=== PATIENT | male | born 1940 | race Caucasian/White ===

== ENCOUNTER 2020-11-17 11:25 | Emergency (ER) | payer MEDICARE, SELFPAY ==
--- NOTE | ~2020-11-17 | CT_ITS ---
EXAMINATION: CT brain wo con EXAM DATE: 11/17/2020 11:51 INDICATION: Slurred speech, left leg pain and heaviness. TECHNIQUE: Spiral CT of the head was performed without contrast. Axial, coronal and sagittal images were reviewed. The dose-length product (DLP) for this examination was 681.00 mGy-cm. The exposure w as tailored according to patient size, and iterative reconstruction (ASIR) was used as additional dos e reduction technique. There is no prior study for comparison. FINDINGS: There is no acute intraparenchymal hemorrhage. No evidence of intraparenchymal brain mass lesion. No evidence of acute infarction. Please note that initial head CT has limited sensitivity f or small or acute infarctions. There is mild periventricular and subcortical hypodensity, nonspecific but probably related to small vessel ischemic disease. There is mild prominence of the sulci and v entricles related to cerebral atrophy. There is intracranial carotid arteriosclerosis. There are n o extra-axial collections. There is no mass effect or midline shift. The orbits are unremarkable. Soft tissue is unremarkable. The visualized sinuses and mastoid air cells are well aerated. IMPRESSION: 1. No acute intracranial findings. 2. Chronic age related findings. Reviewed, dictated and finalized at location B.
--- NOTE | ~2020-11-17 | CT_ITS ---
EXAMINATION: CTA brain carotid EXAM DATE: 11/17/2020 13:26 INDICATION: Slurred speech, right facial droop. Left leg pain. History hypertension. TECHNIQUE: Noncontrast head CT. Spiral CTA of the carotid arteries was performed with intravenous i njection 100 cc of Omnipaque 350. Axial, coronal, sagittal reformatted images reviewed. Additional r eformatted images created on dedicated 3-D workstation. NASCET comparable standard used to assess th e degree of arterial stenosis. Spiral CT angiogram cerebral arteries performed with the same intrave nous injection of contrast. Source images of the brain CTA transferred to dedicated workstation for 3 -D rotational image creation. Coronal, sagittal maximum intensity pixel images also reviewed. The d ose-length product (DLP) for this examination was 593.65 mGy-cm. The exposure was tailored accordin g to patient size, and iterative reconstruction (ASIR) was used as additional dose reduction techniqu e. Correlation is made to noncontrast head CT earlier same date. FINDINGS: There is mild to moderate bilateral carotid bulb plaque which is accommodated by the respec tive carotid bulb natural dilation, 0% carotid stenosis bilaterally. The vertebral arteries are codom inant. There is mild bilateral carotid siphon arterial sclerosis without stenosis. There is no carot id or vertebral basilar arterial dissection or fibromuscular dysplasia. There are no cerebral artery aneurysms. There is symmetric cerebral artery arborization. The sagittal, transverse and sigmoid sinu ses enhance normally, no venous sinus thrombosis. Internal cerebral veins also enhance normally. IMPRESSION: 1. No acute carotid or intracranial findings. 2. Carotid plaque without stenosis. Reviewed, dictated and finalized at location B.
--- NOTE | 2020-11-17 11:32 | ED.NEUROSD ---
HPI - Neuro Symptoms/Deficit General Chief Complaint: Neuro Symptoms/Deficit Stated Complaint: Back and leg pain Source: patient History of Present Illness HPI Narrative: patient was sent over from his primary care physician's office. He was being seen there for some back pain. His doctor noted that he had some slurred speech his daughter stated that been going on since Tuesday night 3 days ago. He is sent over for further evaluation of possible stroke. Onset (ago): day(s) (3) Timing confirmed by: family member Location: speech History of same: No Severity: mild Quality: weak Relieving factors: none Exacerbating factors: none Context: gradual onset Treatments Prior to Arrival: none Related Data Home Medications Medication Instructions Recorded Confirmed alprazolam 0.25 mg PO HS 11/17/20 11/17/20 amlodipine 5 mg PO DAILY 11/17/20 11/17/20 fluticasone propionate 2 inh INHALATION BID 11/17/20 11/17/20 levothyroxine 100 mcg PO DAILY 11/17/20 11/17/20 pravastatin 40 mg PO DAILY 11/17/20 11/17/20 tamsulosin 0.8 mg PO DAILY 11/17/20 11/17/20 Allergies Allergy/AdvReac Type Severity Reaction Status Date / Time No Known Allergies Allergy Unverified 04/27/18 14:10 [facility] Past Medical History Medical History (Updated 11/17/20 @ 14:05 by Lalo Monsivais MD) Anxiety disorder BPH (benign prostatic hyperplasia) Hyperlipidemia Hypertension Hypothyroidism Surgical History Surgical History (Updated 11/17/20 @ 11:38 by Lalo Monsivais MD) H/O parathyroidectomy Exam Const: General: healthy appearing and no acute distress Nutritional Appearance: well nourished and thin Orientation/consciousness: patient oriented x3 HENMT: Head: normal to inspection Ears: external ears normal Face and sinus: normal facial exam Mouth: Yes moist mucous membranes Eyes: Conjunctivae: conjunctivae normal Pupils: Equal, round and reactive pupils present EOM: EOMs intact bilaterally Neck: Neck: normal visual inspection Resp: Effort & Inspection: normal respiratory effort Auscultation: clear to auscultation bilaterally Cardio: Rate: regular rate Rhythm: regular rhythm GI: GI Palp: Yes Soft to palpation and No Tenderness to palpation present (GI) Auscultation: normal bowel sounds Back/Spine/Pelvis: Cervical Spine: cervical ROM normal Thoracic/Lumbar Spine: thoraco-lumbar ROM normal, paraspinal muscle tenderness on the left and No lumbar spinal tenderness Skin: General skin exam: normal color Rashes: no rashes Neuro: General: patient oriented x3 and moves all extremities Cranial nerves: Yes Facial sensation intact/muscles of mastication intact, Yes Equal, round and reactive pupils present, Yes Bilaterally intact EOM present, Yes Midline tongue present and Yes Other cranial nerve findings present ( Slight weakness on the right side face) Speech: Abnormal speech present slurred (Mild) Gait exam (Neuro): Normal gait present Motor exam (neuro): 5/5 motor strength present throughout, Pronator motor function not present, No asterixis and Motor abnormalities not present Sensory Exam: normal sensation Coordination: [id number] test normal and [id number] test normal Extrem: General: normal to inspection, no clubbing, cyanosis or edema and no pedal edema Psych: Appearance: grossly normal and well kempt Mental Status: mental status grossly normal Affect: normal affect Attitude: cooperative Thought content: Yes Normal thought content present Course Vital Signs Vital signs: Vital Signs Temperature 36.8 C 11/17/20 11:34 Pulse Rate 77 11/17/20 11:34 Respiratory Rate 16 11/17/20 11:34 Blood Pressure 146/91 H 11/17/20 11:34 Pulse Oximetry 96 11/17/20 11:34 Temperature 36.8 C 11/17/20 11:34 Pulse Rate 78 11/17/20 14:10 Respiratory Rate 14 11/17/20 14:10 Blood Pressure 136/88 11/17/20 13:05 Pulse Oximetry 98 11/17/20 14:10 MDM - Neuro Symptoms/Deficit MDM Narrative Medical decision mason
[2020-11-17 11:34] VITALS: BP 146/91; PULSE 77; RESP 16; TEMP 36.8; O2SAT 96
--- NOTE | 2020-11-17 11:36 | ECG_ITS ---
Measurements Intervals [place] Rate: 72 P: 32 MO: 159 QRS: -23 QRSD: 108 T: 30 QT: 377 QTc: 415 Interpretive Statements SINUS RHYTHM WITH SINUS ARRHYTHMIA INCOMPLETE RIGHT BUNDLE BRANCH BLOCK BASELINE ARTIFACT- II, III, AVF BORDERLINE ECG Electronically Signed On 11-17-2020 12:31:39 CDT by Perry Centeno D.O.
[2020-11-17 11:45] LABS: Glucose Point of Care 102 (65-105)
[2020-11-17 12:03] LABS: Basophils Absolute Auto 0.08 K/mm3 (0.00-0.10); Basophils Percent Auto 0.7 % (0.0-1.0); Eosinophils Absolute Auto 0.34 K/mm3 (0.02-0.50); Hematocrit 45.1 % (37.0-46.0); Hemoglobin 15.8 g/dL (12.4-15.3); Immature Granulocyte Absolute 0.03 K/mm3 (0.00-0.00); Immature Granulocyte Percent A 0.3 % (0.0-0.0); Lymphocytes Absolute Auto 2.01 K/mm3 (1.10-4.50); Lymphocytes Percent Auto 17.8 % (18.0-42.0); Mean Corpuscular Hemoglobin 31.8 pg (27.0-31.0); Mean Corpuscular Volume 90.7 fL (78.0-102.0); Mean Platelet Volume 9.7 fl (8.7-11.0); Monocytes Absolute Auto 0.73 K/mm3 (0.10-0.90); Monocytes Percent Auto 6.5 % (2.0-11.0); Neutrophils Absolute Auto 8.1 K/mm3 (1.7-7.2); Neutrophils Percent Auto 71.7 % (50.0-70.0); Platelet Count Result 240 K/mm3 (150-420); Red Blood Count 4.97 M/mm3 (4.70-6.10); Red Cell Distribution Width 11.9 % (11.6-14.4); White Blood Count 11.3 K/mm3 (4.8-10.8)
[2020-11-17 12:20] LABS: Partial Thromboplastin Time 31.2 SEC (23.90-30.70); Prothrombin Time 10.9 Seconds (9.50-12.10)
[2020-11-17 12:21] LABS: Alanine Aminotransferase 28 U/L (16-63); Albumin Level 3.8 g/dL (3.4-5.0); Alkaline Phosphatase 57 U/L (46-116); Anion Gap 8 mmol/L (8-16); Aspartate Amino Transferase 16 U/L (15-37); Bilirubin,Total 0.8 mg/dL (0.00-1.00); Blood Urea Nitrogen 21 mg/dL (7-18); Calcium 8.9 mg/dL (8.5-10.1); Carbon Dioxide 29 mmol/L (21-32); Chloride 100 mmol/L (98-108); Estimated CRCL calculation 45 ml/min; Estimated Glomerular Filt Rate 58; Glucose 105 mg/dL (70-99); Osmolality Calculated 287 mOsm/kg (285-295); Potassium 3.8 mmol/L (3.5-5.1); Sodium 137 mmol/L (136-145); Total Protein 7.7 g/dL (6.4-8.2)
--- NOTE | 2020-11-17 12:43 | PC.NURSE ---
no change in pt status
[2020-11-17 13:05] VITALS: BP 136/88; PULSE 77; RESP 18; O2SAT 97
[2020-11-17] MEDS: KETOROLAC 30 MG/ML VIAL (*BKC) IV PUSH (13:50)
[2020-11-17 14:10] VITALS: PULSE 78; RESP 14; O2SAT 98
== END 2020-11-17 14:11 | disposition home or self-care (01) ==
PROVIDERS: Emergency Provider Emergency Medicine; PCP Internal Medicine
DX: G45.9 Transient cerebral ischemic attack, unspecified (principal); M54.5 Low back pain; E78.5 Hyperlipidemia, unspecified; I10 Essential (primary) hypertension; E03.9 Hypothyroidism, unspecified
CPT/HCPCS: 36415; 70450; 70496; 70498; 80053; 82948; 85025; 85610; 85730; 93005; 96374; 99283; 99284; J1885; Q9967

== ENCOUNTER 2020-11-18 10:55 | Outpatient (CLI) | payer MEDICARE, SELFPAY ==
--- NOTE | ~2020-11-18 | XR_ITS ---
EXAMINATION: XR lumbar spine 2-3V DATE: 11/18/2020 11:18 INDICATION: Low back pain TECHNIQUE: Anteroposterior and lateral views of the lumbar spine, and cone-down lateral view of the l umbosacral junction were obtained. COMPARISON: None. FINDINGS: There are 2 mm of anterolisthesis of L4 on L5 and 4 mm of retrolisthesis of L5 on S1. No fr acture is identified. Vertebral body heights are normal. Small degenerative osteophytes project from the anterior endplates of multiple vertebral bodies. Calcified atherosclerosis is noted. There is mod erate facet osteoarthritis in the middle lower lumbar spine. IMPRESSION: 1. Mild lumbar spondylosis without acute findings. Reviewed, dictated and finalized at location A.
== END 2020-11-18 10:56 | disposition home or self-care (01) ==
PROVIDERS: PCP Internal Medicine; Visit Provider Internal Medicine
DX: M54.5 Low back pain (principal)
CPT/HCPCS: 72100

== ENCOUNTER 2020-11-19 17:48 | Outpatient (CLI) | payer MEDICARE, SELFPAY ==
--- NOTE | ~2020-11-19 | MR_ITS ---
EXAMINATION: MR brain/brain stem wo/w con DATE: 11/19/2020 20:12 INDICATION: Transient ischemic attack. Slurred speech. Right facial weakness. TECHNIQUE: Magnetic resonance imaging (MRI) of the brain and brainstem was performed without and with 10 mL MultiHance intravenous contrast. Sequences included sagittal and axial T1-weighted FSE, axial diffusion-weighted FS EPI, axial T2*-weighted GRE, axial T2-weighted FLAIR Propeller, and axial T2-we ighted Propeller. Postcontrast sequences included axial and coronal T1-weighted FSE. Apparent diffusi on coefficient (ADC) maps were created. COMPARISON: Head CT 11/17/2020 FINDINGS: There are scattered areas of nonspecific increased T2-weighted signal intensity in the cere bral white matter and june. There is no intracranial hemorrhage, acute infarction, or abnormal intrac ranial mass lesion. The ventricles are normal in size. There are likely changes of ocular lens replac ement surgeries. There is anteroposterior elongation of the ocular globes. There is mild mucosal thic kening in left maxillary sinus. The mastoid air cells are normal. IMPRESSION: 1. Mild nonspecific cerebral white matter disease and pontine disease, which likely represents chroni c small vessel ischemic disease. Reviewed, dictated and finalized at location A. IMPRESSION: 1. Mild nonspecific cerebral white matter disease and pontine disease, which kermit jones represents chronic small vessel ischemic disease.
== END 2020-11-19 17:49 | disposition home or self-care (01) ==
LOC: CHSIMG 17:49
PROVIDERS: PCP Internal Medicine; Visit Provider Internal Medicine
DX: G45.9 Transient cerebral ischemic attack, unspecified (principal)
CPT/HCPCS: 70553

== ENCOUNTER 2020-11-26 10:26 | Outpatient (CLI) | payer MEDICARE, SELFPAY ==
--- NOTE | 2020-11-26 10:30 | ECHO_ITS ---
Patient Info Name: Cisco Schwartz Age: 80 years : 1940 Gender: Male Ht: 70 in Wt: 160 lbs BSA: 1.89 m2 HR: 61 bpm BP: 143 / 82 mmHg Heart Rhythm: Sinus Rhythm Technical Quality: Good Exam Date: 11/26/2020 10:24 AM Exam Location: [facility] Patient Status: Outpatient Admit Date: 11/26/2020 Staff Ordering Physician: Khang Austin MD Formula Clerk: Anh Quigley RDCS Attending Provider: Khang Austin MD Referring Physician: Norman LOPEZ; Exam Type: CA echo doppler color flow Study Info Indications G45.9 - Transient cerebral ischemic attack, unspecified Complete two-dimensional, color flow and Doppler transthoracic echocardiogram is performed. Strain analysis performed. History/Risk Factors Hypertension: No Dyslipidemia: No Congenital Heart Disease (CHD): No Peripheral Arterial Disease (PAD): No Myocardial Infarction (MA): No Chronic Lung Disease: No Obesity: No Renal Disease: No Coronary Artery Disease (CAD) No Congestive Heart Failure (CHF): No Cardiomyopathy/LV Systolic Dysfunction: No COPD: No Tobacco Use: Former Cerebrovascular Disease: TIA Family History: Coronary Artery Disease Deep Vein Thrombosis (DVT): None Dialysis: None Frailty Scale (CSHA): 2: Well Cardiac Arrest: No Summary 1. Complete two-dimensional, color flow and Doppler transthoracic echocardiogram is performed. 2. Left ventricular chamber dimension is normal. 3. Left ventricular systolic function is normal, estimated at 55-60%. 4. There is mildly increased left ventricular wall thickness. 5. The left ventricular diastolic function is grade I diastolic dysfunction. 6. E/e' 13 is mildly elevated. 7. Global longitudinal strain is normal at -17.6%. 8. There is mild aortic valve sclerosis. 9. There is trace aortic valve regurgitation. 10. No pulmonary hypertension, estimated pulmonary arterial systolic pressure is 38 mmHg. 11. There is mild pulmonic regurgitation. Left Ventricle E/e' 13 is mildly elevated. Global longitudinal strain is normal at -17.6%. Left ventricular chamber dimension is normal. Left ventricular systolic function is normal, estimated at 55-60%. There is mildly increased left ventricular wall thickness. The left ventricular diastolic function is grade I diastolic dysfunction. Right Ventricle Right ventricular chamber dimension is normal. Right ventricular systolic function is normal. Left Atria Left atrial chamber dimension is normal. Right Atria Right atrial chamber dimension is normal. Aortic Valve The aortic valve is trileaflet. There is mild aortic valve sclerosis. There is no aortic valve stenosis. There is trace aortic valve regurgitation. Pulmonic Valve There is mild pulmonic regurgitation. Mitral Valve There is no mitral valve stenosis. There is no mitral valve regurgitation. Tricuspid Valve There is no tricuspid valve regurgitation. No pulmonary hypertension, estimated pulmonary arterial systolic pressure is 38 mmHg. Pericardium/Pleural There is no pericardial effusion. Inferior Vena Cava Normal inferior vena cava with >50% collapse upon inspiration consistent with normal right atrial pressure, 5 mmHg. Aorta The aortic root size at the sinus of Valsalva is normal. Left Ventricular Outflow Tract Name Va
== END 2020-11-26 10:27 | disposition home or self-care (01) ==
LOC: CHSIMG 10:27
PROVIDERS: PCP Internal Medicine; Visit Provider Internal Medicine
DX: G45.9 Transient cerebral ischemic attack, unspecified (principal)
CPT/HCPCS: 93306

== ENCOUNTER 2021-01-15 01:33 | Day surgery (SDC) | payer MEDICARE, SELFPAY ==
[2021-01-07 15:10] VITALS: BMI 23.4
[2021-01-15 06:19] VITALS: BP 129/82; PULSE 74; RESP 18; TEMP 36.6; O2SAT 95
[2021-01-15] MEDS: LACTATED RINGERS 1,000 ML 150 ML IV CONT (06:23)
--- NOTE | 2021-01-15 07:12 | WPDANESEPPF ---
Anes - Initial Pre Proc Eval Procedure: Operation Date: 01/15/21 07:30 Proposed Procedures p Colonoscopy - Jerardo Cartagena DO Date/Time: 01/15/21 07:12 Surgeon: Jerardo Cartagena DO Pre Op Diagnosis: positive cologuard Patient Data Age: 80 Gender: M Height: 1.7 m Weight: 70.6 kg Last Vital Signs Temp 98 F 01/15/21 06:19 Pulse 74 01/15/21 06:19 Resp 18 01/15/21 06:19 BP 129/82 01/15/21 06:19 Pulse Ox 95 01/15/21 06:19 Allergies Allergy/AdvReac Type Severity Reaction Status Date / Time No Known Allergies Allergy Verified 01/15/21 06:17 Home Medications Medication Instructions Recorded Confirmed Type amlodipine 5 mg PO DAILY 11/17/20 01/15/21 History levothyroxine 100 mcg PO DAILY 11/17/20 01/15/21 History pravastatin 40 mg PO DAILY 11/17/20 01/15/21 History tamsulosin 0.8 mg PO DAILY 11/17/20 01/15/21 History alprazolam 0.25 mg tablet 0.25 mg PO BID PRN tablet 11/24/20 01/15/21 History cyanocobalamin (vitamin B-12) 500 500 mcg PO DAILY 11/24/20 01/15/21 History mcg tablet aspirin [Adult Low Dose Aspirin] 81 mg PO DAILY 01/07/21 01/15/21 History Patient hx anesthesia problems: none Family hx anesthesia problems: none PMFSH Past Medical History Medical History Anxiety disorder BPH (benign prostatic hyperplasia) Hyperlipidemia Hypertension Hypothyroidism Surgical History Surgical History H/O parathyroidectomy Social History Social History (Updated 11/24/20 @ 14:25 by Jodee Lopez MA) Smoking status: Former smoker Substance use: never Living arrangements: with family Spiritual care concerns: No Anes - Eval Final PreProcedure Day of Procedure 01/15/21 07:12 Patient weight: normal Heart: regular rate and rhythm Lungs: clear to auscultation Airway: Mallampati scale class III Neurological: alert and oriented Last oral intake: >/= 8 hours ASA classification: III Emergent: no Anesthetic plan: proceed Anesthesia type and monitoring: general GIVS and standard monitoring Informed Consent: The patient's anesthetic plan and its attendant risks and benefits were discussed with the patient/family/POA. Questions were solicited and answers provided to the satisfaction of the patient/family/POA.
--- NOTE | 2021-01-15 07:35 | PM.IMHP ---
H&P: HPI History of Present Illness Date/Time: 01/15/21 07:35 Chief Complaint: Positive colo guard Narrative: this is a 80 year man who presents for colonoscopy. His last colonoscopy was at least fiber 6 years ago. He had a stool study that was positive was referred repeat colonoscopy. Review of Systems Review of Systems: All systems reviewed & are unremarkable except as noted in HPI and below Constitutional: Constitutional: Denies chills, Denies fever(s), Denies headache(s) and Denies weight loss Eyes: Eyes: Denies change in vision ENT: Denies dizziness, Denies headache(s), Denies neck mass and Denies throat swelling Cardiovascular: Cardiovascular: Denies chest pain, Denies lightheadedness and Denies dyspnea Respiratory: Respiratory: Denies cough, Denies dyspnea and Denies wheezing Gastrointestinal: Gastrointestinal: Denies abdominal pain, Denies change in bowel habits, Denies nausea and Denies vomiting Genitourinary: Genitourinary: Denies hematuria and Denies dysuria Musculoskeletal: Musculoskeletal: Reports as per HPI Integumentary/Breasts: Skin/Breast: Reports as per HPI Neurologic: Denies dizziness and Denies headache(s) Allergic/Immunologic: Allergic/Immunologic: Denies throat swelling and Denies wheezing PMFSH Past Medical History Medical History Anxiety disorder BPH (benign prostatic hyperplasia) Hyperlipidemia Hypertension Hypothyroidism Surgical History Surgical History H/O parathyroidectomy Social History Social History (Updated 11/24/20 @ 14:25 by Jodee Lopez MA) Smoking status: Former smoker Substance use: never Living arrangements: with family Spiritual care concerns: No Meds Home Medications and Allergies Home Medications Medication Instructions Recorded Confirmed Type amlodipine 5 mg PO DAILY 11/17/20 01/15/21 History levothyroxine 100 mcg PO DAILY 11/17/20 01/15/21 History pravastatin 40 mg PO DAILY 11/17/20 01/15/21 History tamsulosin 0.8 mg PO DAILY 11/17/20 01/15/21 History alprazolam 0.25 mg tablet 0.25 mg PO BID PRN tablet 11/24/20 01/15/21 History cyanocobalamin (vitamin B-12) 500 500 mcg PO DAILY 11/24/20 01/15/21 History mcg tablet aspirin [Adult Low Dose Aspirin] 81 mg PO DAILY 01/07/21 01/15/21 History Allergies Allergy/AdvReac Type Severity Reaction Status Date / Time No Known Allergies Allergy Verified 01/15/21 06:17 Vital Signs Vital Signs - 24 hr 01/15/21 06:19 Temperature 36.6 C Pulse Rate 74 Respiratory Rate 18 Blood Pressure 129/82 Pulse Oximetry 95 Exam Const: General: no acute distress and alert Orientation/consciousness: patient oriented x3 HENMT: Head: normocephalic and atraumatic Ears: hearing grossly normal bilaterally General nose exam: Normal nares present Mouth: Yes Normal oral and palatal mucosa present Eyes: Periorbital: periorbital findings normal Sclera: sclerae normal EOM: EOMs intact bilaterally Neck: Neck: normal visual inspection, no lymphadenopathy and trachea midline Chest: Chest palpation & inspection: normal inspection of the chest Resp: Effort & Inspection: normal respiratory effort Auscultation: clear to auscultation bilaterally Cardio: Jugular venous distension: no JVD Rate: regular rate Rhythm: regular rhythm Heart sounds: S1 normal heart sound present and S2 normal heart sound present Peripheral pulses: Peripheral pulses 2+ throughout GI: Inspection: normal to inspection GI Palp: Yes Soft to palpation, No Tenderness to palpation present (GI), No Guarding due to palpation present (GI) and No Rebound tenderness present Percussion: Yes normal to percussion Auscultation: normal bowel sounds : General: Yes no CVA tenderness Back/Spine/Pelvis: Back: no CVA tenderness Neuro: General: patient oriented x3, no focal motor deficits and CN's II-XI intact bilaterally Cognition (N
[2021-01-15 08:26] VITALS: BP 119/82; PULSE 70; RESP 23; O2SAT 98
[2021-01-15 08:36] VITALS: BP 129/89; PULSE 72; RESP 21; O2SAT 99
[2021-01-15 08:46] VITALS: BP 143/95; PULSE 63; RESP 17; O2SAT 99
== END 2021-01-15 09:04 | disposition home or self-care (01) ==
PROVIDERS: PCP Internal Medicine; Visit Provider Surgery
PROC: 0DJD8ZZ Inspection of Lower Intestinal Tract, Via Natural or Artificial Opening Endoscopic (ICD-10-PCS; CPT 45378; principal; 2021-01-15 07:30)
DX: R19.5 Other fecal abnormalities (principal); D12.2 Benign neoplasm of ascending colon; D12.0 Benign neoplasm of cecum; K57.30 Diverticulosis of large intestine without perforation or abscess without bleeding; I10 Essential (primary) hypertension; E03.9 Hypothyroidism, unspecified; E78.5 Hyperlipidemia, unspecified; N40.0 Benign prostatic hyperplasia without lower urinary tract symptoms; F41.9 Anxiety disorder, unspecified; Z79.82 Long term (current) use of aspirin; Z87.891 Personal history of nicotine dependence
CPT/HCPCS: 45385; 88305; J2704; J7120

== ENCOUNTER 2022-11-08 09:40 | Inpatient (IN) | payer MEDICARE, SELFPAY ==
[2022-11-08] VITALS (7 sets, daily range): BP systolic 128–137; BP diastolic 73–84; PULSE 91–100; RESP 14–20; TEMP 37.7–38.2; O2SAT 93–98; BMI 23.6
--- NOTE | 2022-11-08 09:44 | ECG_ITS ---
Measurements Intervals [place] Rate: 94 P: 76 VT: 156 QRS: -21 QRSD: 94 T: 60 QT: 332 QTc: 416 Interpretive Statements SINUS RHYTHM WITH SINUS ARRHYTHMIA BORDERLINE LEFT AXIS DEVIATION [QRS AXIS < -20] NONSPECIFIC ST & T-WAVE ABNORMALITY ABNORMAL ECG Electronically Signed On 11-08-2022 12:00:44 CDT by Magen Wayne M.D.
--- NOTE | 2022-11-08 09:49 | ED.GENADULT ---
HPI - General Adult General Chief complaint: Weakness Stated complaint: weakness Time Seen by Provider: 11/08/22 09:43 History of Present Illness HPI narrative: Cisco is an 82M with a PMH of anxiety, HLD, BPH, HTN, and hypothyroidism that presented to the ED with weakness and trouble urinating. He was not able to get out of bed this morning. 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 He reports body aches, chills, and that he is unable to drain his bladder. Related Data Home Medications Medication Instructions Recorded Confirmed amlodipine 5 mg tablet 10 mg PO DAILY 11/17/20 11/08/22 levothyroxine 100 mcg tablet 100 mcg PO DAILY 11/17/20 11/08/22 pravastatin 40 mg tablet 40 mg PO HS 11/17/20 11/08/22 tamsulosin 0.4 mg capsule 0.8 mg PO DAILY 11/17/20 11/08/22 alprazolam 0.25 mg tablet 0.5 mg PO HS PRN Anxiety 11/24/20 11/08/22 cyanocobalamin (vitamin B-12) 500 500 mcg PO DAILY 11/24/20 11/08/22 mcg tablet (Vitamin B-12) aspirin 325 mg tablet 325 mg PO DAILY 11/08/22 11/08/22 Allergies Allergy/AdvReac Type Severity Reaction Status Date / Time No Known Allergies Allergy Verified 11/08/22 10:58 Review of Systems Review of Systems: All systems reviewed & are unremarkable except as noted in HPI and below PMFSH Past Medical History Medical History Anxiety disorder BPH (benign prostatic hyperplasia) Hyperlipidemia Hypertension Hypothyroidism Surgical History Surgical History H/O parathyroidectomy Social History Social History Smoking packs per day: 1 Smoking cigarettes per day: 20.0 Years smoked: 30 Smoking pack-years: 30.00 Smoking status: Former smoker Tobacco type: cigarettes Second hand tobacco smoke exposure: No Alcohol intake: never Substance use: never Substance use type: does not use Lack of Transportation: No Lack of Food: Never True Current Housing: I Have Housing Concerned About Future Housing: No Difficulty Paying Gas/Electric Bills: No Difficulty Paying for Meds: No Currently Unemployed: No Education: Don't Know Difficulty w/ Childcare or Family Care: No Living arrangements: with family Gender identity (if verbalized by the patient): Male Sexual Orientation (if Verbalized by the Patient): Straight or Heterosexual Spiritual care concerns: No Exam Const: General: healthy appearing and no acute distress Nutritional Appearance: well nourished Orientation/consciousness: patient oriented x3 HENMT: Head: normal to inspection Ears: external ears normal Face/Nose/Sinus: Normal external nose present Eyes: Conjunctivae: conjunctivae normal Pupils: Equal, round and reactive pupils present EOM: EOMs intact bilaterally Neck: Neck: normal visual inspection Chest: Chest palpation & inspection: normal inspection of the chest Resp: Effort & Inspection: normal respiratory effort Auscultation: clear to auscultation bilaterally Cardio: Rate: regular rate Rhythm: regular rhythm GI: Inspection: non-distended : Other: No CVA tenderness. Distended bladder and TTP in the suprapubic region. Skin: General skin exam: normal color Rashes: no rashes Neuro: General: patient oriented x3 and moves all extremities Extrem: General: normal to inspection Psych: Mental Status: mental status grossly normal Affect: normal affect Course Course Emergency Course: Ordered labs and ekg EKG showed sinus tachycardia with a rate of 94, possible LAD, but no ST elevation/depression UA concerning for UTI as well as leukocytosis. Urine sent for culture. Started ceftriaxone and IV fluids. Contacted hospitalist for admission given severe weakness with UTI and SIRS criteria. Vital Signs Vital signs: Vital Signs Temperature 100.5 F H 11/08/ 09
[2022-11-08 10:05] LABS: Hematocrit 46.8 % (37.0-46.0); Hemoglobin 16.8 g/dL (12.4-15.3); Mean Corpuscular HGB Conc 35.9 g/dL (32.0-36.0); Mean Corpuscular Hemoglobin 32.7 pg (27.0-31.0); Mean Corpuscular Volume 91.2 fL (78.0-102.0); Mean Platelet Volume 9.8 fl (8.7-11.0); Platelet Count Result 245 K/mm3 (150-420); Red Blood Count 5.13 M/mm3 (4.70-6.10); Red Cell Distribution Width 11.4 % (11.6-14.4)
[2022-11-08 10:07] LABS: White Blood Count 22.9 K/mm3 (4.8-10.8)
[2022-11-08 10:14] LABS: Band Neutrophils Percent 0 % (0-6); Eosinophils Absolute Manual 0.45 K/mm3 (0.02-0.5); Eosinophils Percent Manual 2 % (1-6); Lymphocytes Absolute Manual 1.83 K/mm3 (1.1-4.5); Lymphocytes Percent Manual 8 % (18-44); Monocytes Absolute Manual 2.06 K/mm3 (0.1-0.90); Monocytes Percent Manual 9 % (3-9); Neutrophils Absolute Manual 18.54 K/mm3 (1.3-6.7); Neutrophils Percent Manual 81 % (46-73); Platelet Estimate Adequate (Adequate); Total Cells Counted 100
[2022-11-08 10:21] LABS: Appearance Urine Slightly Cloudy (Clear); Bilirubin Urine Negative (Negative); Blood Urine 3+ (Negative); Color Urine Light Yellow (Yellow); Glucose Urine UA Negative (Negative); Ketones Urine Negative (Negative); Leukocyte Esterase Ur 2+ LEU/UL (Negative); Nitrate Urine Positive (Negative); Protein Urine 1+ (Negative); Specific Grav Ur 1.015 (1.010-1.020); Urobilinogen Urine 0.2 mg/dL (0.2-1.0)
[2022-11-08 10:23] LABS: Strep Group A RT-PCR NOT DETECTED (Negative)
[2022-11-08 10:27] LABS: Add Urine Microscopic? YES; Bacteria Urine 2+ /hpf; Squamous Epithelial Cell Urine Rare /hpf (Few); WBC Urine 31-50 /hpf (0-3)
[2022-11-08 10:27] LABS: Alanine Aminotransferase 28 U/L (16-63); Albumin Level 4.1 g/dL (3.4-5.0); Alkaline Phosphatase 50 U/L (46-116); Anion Gap 10 mmol/L (8-16); Aspartate Amino Transferase 22 U/L (15-37); Bilirubin,Total 1.1 mg/dL (0.00-1.00); Blood Urea Nitrogen 15 mg/dL (7-18); Calcium 9.2 mg/dL (8.5-10.1); Carbon Dioxide 27 mmol/L (21-32); Chloride 102 mmol/L (98-108); Estimated CRCL calculation 42 ml/min; Estimated Glomerular Filt Rate > 60; Glucose 116 mg/dL (70-99); Magnesium 1.9 mg/dL (1.8-2.4); NT Pro B Type Natriuretic Pept 189 pg/mL (0-450); Osmolality Calculated 289 mOsm/kg (285-295); Potassium 3.9 mmol/L (3.5-5.1); Sodium 139 mmol/L (136-145); Total Protein 8.4 g/dL (6.4-8.2)
[2022-11-08 10:32] LABS: Influenza A QL RT-PCR Negative (Negative); Influenza B QL RT-PCR Negative (Negative); SARS-CoV-2 RNA PCR Negative (Negative)
[2022-11-08 10:33] LABS: RSV RNA, RT-PCR Negative (Negative)
[2022-11-08] MEDS: SODIUM CHLORIDE 0.9% IV 1,000 ML 999 ML IV CONT (10:35)
[2022-11-08] MEDS: cefTRIAXone 2 GM/NS 100 ML 2 GM/100 ML BAG IVPB (10:36)
[2022-11-08 10:39] LABS: Thyroid Stimulating Hormone 1.45 uIU/mL (0.36-3.74)
[2022-11-08] MEDS: SODIUM CHLORIDE 0.9% IV 1,000 ML 100 ML IV CONT ×2 (11:50→22:21)
[2022-11-08] MEDS: ACETAMINOPHEN 325 MG TABLET 650 MG PO ×2 (12:55→17:07)
--- NOTE | 2022-11-08 13:30 | PC.NURSE ---
Pt admitted to room 209 as observation pt from the ED. Pt is A/Ox3, walking with stand by assistance. Pt has 100.5 temp and states he feels cold all over. RN educated pt regarding visitng hours, smoking policy, visiting hours and the call system.
[2022-11-08 15:00] LABS: Prostate Specific Antigen 26.6 ng/mL (< OR = 4.0)
--- NOTE | 2022-11-08 17:12 | PC.NURSE ---
PRN tylenol given for headache and fever. Patient expressed concern nothing was being done Educated on use of fluids and ABT in treatment. Pointed out increase in urine clarity and color
--- NOTE | 2022-11-08 19:45 | PC.NURSE ---
Patient is laying in bed, awake. He states no longer in pain, after tylenol given for headache earlier in the evening. Patient was using urinal in bed when nurse entered room. Patient stated that urinating was a very slow process for him at this time. UtI has not been resolved at this time.
--- NOTE | 2022-11-08 21:00 | PC.NURSE ---
Addendum entered by Lisa Gomez RN 11/09/22 04:34: No resolution of UTI during this time. Original Note: Patient is still laying in his bed, concerned about not being able to sleep tonight. Patient is given his bedtime medications, including trazodone, to help with sleep, and IV ativan, 0.5 mg to help with anxiety. Patient is used to taking xanax at night, so the ativan was substituted. Patient stated that he would try to get some sleep. No pain reported at this time.
[2022-11-08] MEDS: PRAVASTATIN SODIUM 20 MG TABLET 40 MG PO (21:23)
[2022-11-08] MEDS: LORazepam INJ (*CRX) 2 MG/ML VIAL 0.5 MG IV PUSH (21:23)
[2022-11-08] MEDS: traZODone HCL 50 MG TABLET PO (21:23)
--- NOTE | 2022-11-08 23:30 | PC.NURSE ---
Patient used call light for assistance, while this nurse was in another patient's room. Charge nurse answered light and reported to this nurse that patient was unable to urinate, and was beginning to feel some discomfort. Patient reported severe pain when this nurse visited his room shortly after 2300. Patient was given [place] for pain, and a bladder scan was obtained. Change of shift report was given to next nurse, and this charge nurse called Lorraine Sanders NP to get an order for placement of a reynoso due to urinary retention and severe pain. Order was given and reynoso was placed by the next shift nurse.
[2022-11-08] MEDS: HYDROcodone/acetaminophen (*CRX) 5-325 MG TABLET 1 TAB PO (23:39)
--- NOTE | 2022-11-08 23:40 | PC.NURSE ---
Upon assessment, pt in bed, tearful and c/o severe lower pelvic region pain from not being able to urinate. Pt states he has tried standing and moving and is unable to urinate and now is at point of severe discomfort. Call made by charge nurse for order for reynoso cath. Bladder scanner obtained report that pt is retaining approx 575 ml of urine.
[2022-11-09] VITALS: BP 112/77; PULSE 97; RESP 20; TEMP 37.7; O2SAT 94
--- NOTE | 2022-11-09 | PC.NURSE ---
Pt reports pain relief and feeling much better p reynoso cath inserted. Pt had 626 ml urine output and noted pink tinged urine p insertion.
--- NOTE | 2022-11-09 04:15 | PC.NURSE ---
Pt draining bloody urine into reynoso and noted small clots around head of penis. Pt cleaned of clots and repositioned self.
[2022-11-09 05:12] LABS: Hematocrit 40.7 % (37.0-46.0); Hemoglobin 13.9 g/dL (12.4-15.3); Mean Corpuscular HGB Conc 34.2 g/dL (32.0-36.0); Mean Corpuscular Hemoglobin 31.5 pg (27.0-31.0); Mean Corpuscular Volume 92.3 fL (78.0-102.0); Platelet Count Result 209 K/mm3 (150-420); Red Blood Count 4.41 M/mm3 (4.70-6.10); Red Cell Distribution Width 11.6 % (11.6-14.4)
[2022-11-09 05:18] LABS: White Blood Count 25.8 K/mm3 (4.8-10.8)
--- NOTE | 2022-11-09 05:23 | PC.NURSE ---
Anh from the lab called at 0520 with a critical lab value of 25.8 for WBC. This is a second critical lab value for WBC, and therefore the MANAGER does not need to called, but will be notified when they come to the floor.
[2022-11-09 05:24] LABS: Anion Gap 8 mmol/L (8-16); Blood Urea Nitrogen 13 mg/dL (7-18); Calcium 8.4 mg/dL (8.5-10.1); Carbon Dioxide 27 mmol/L (21-32); Chloride 105 mmol/L (98-108); Estimated CRCL calculation 54 ml/min; Estimated Glomerular Filt Rate > 60; Glucose 112 mg/dL (70-99); Osmolality Calculated 291 mOsm/kg (285-295); Potassium 3.6 mmol/L (3.5-5.1); Sodium 140 mmol/L (136-145)
[2022-11-09] MEDS: LEVOTHYROXINE SODIUM 100 MCG TABLET PO (06:29)
[2022-11-09] MEDS: HYDROcodone/acetaminophen (*CRX) 5-325 MG TABLET 1 TAB PO ×2 (06:33→20:34)
[2022-11-09 08:00] VITALS: BP 120/74; PULSE 78; PULSE 89; RESP 20; TEMP 36.9; O2SAT 94
[2022-11-09] MEDS: SODIUM CHLORIDE 0.9% IV 1,000 ML 100 ML IV CONT ×2 (08:01→20:24)
--- NOTE | 2022-11-09 08:05 | PM.IMHP ---
H&P: HPI History of Present Illness Date/Time: 11/09/22 08:05 Chief Complaint: weakness Narrative: this 82-year-old male presented to our emergency department with complaints of weakness. Patient has a past medical history of anxiety, HLD, BPH, hypertension and hypothyroidism. Patient has had a problem with urination for the last couple and recently developed weakness. On admission patient's temperature was 100.5?, WBC 22.9, hemoglobin is in 0.8, hematocrit 46.8, platelets 245, sodium 139, potassium 3.9, BUN 15, creatinine 1.10, glucose 116 patient UA positive for nitrate leukocyte Estrace bacteria. Patient being admitted for urinary tract infection. The patient denies SOB, CP, palpitation, extremity numbness, lightheadedness, dizziness, constipation, diarrhea, chills, or fever. he does complain of being weak. Review of Systems Review of Systems: All systems reviewed & are unremarkable except as noted in HPI and below PMFSH Past Medical History Medical History Anxiety disorder BPH (benign prostatic hyperplasia) Hyperlipidemia Hypertension Hypothyroidism Surgical History Surgical History H/O parathyroidectomy Social History Social History Smoking packs per day: 1 Smoking cigarettes per day: 20.0 Years smoked: 30 Smoking pack-years: 30.00 Smoking status: Former smoker Tobacco type: cigarettes Second hand tobacco smoke exposure: No Alcohol intake: never Substance use: never Substance use type: does not use Lack of Transportation: No Lack of Food: Never True Current Housing: I Have Housing Concerned About Future Housing: No Difficulty Paying Gas/Electric Bills: No Difficulty Paying for Meds: No Currently Unemployed: No Education: Don't Know Difficulty w/ Childcare or Family Care: No Living arrangements: with family Gender identity (if verbalized by the patient): Male Sexual Orientation (if Verbalized by the Patient): Straight or Heterosexual Spiritual care concerns: No Meds Home Medications and Allergies Home Medications Medication Instructions Recorded Confirmed Type amlodipine 5 mg tablet 10 mg PO DAILY 11/17/20 11/08/22 History levothyroxine 100 mcg tablet 100 mcg PO DAILY 11/17/20 11/08/22 History pravastatin 40 mg tablet 40 mg PO HS 11/17/20 11/08/22 History tamsulosin 0.4 mg capsule 0.8 mg PO DAILY 11/17/20 11/08/22 History alprazolam 0.25 mg tablet 0.5 mg PO HS PRN Anxiety 11/24/20 11/08/22 History cyanocobalamin (vitamin B-12) 500 500 mcg PO DAILY 11/24/20 11/08/22 History mcg tablet (Vitamin B-12) aspirin 325 mg tablet 325 mg PO DAILY 11/08/22 11/08/22 History Allergies Allergy/AdvReac Type Severity Reaction Status Date / Time No Known Allergies Allergy Verified 11/08/22 10:58 Vital Signs Vital Signs - 24 hr 11/08/22 09:48 11/08/22 12:00 11/08/22 12:55 Temperature 38.1 C H 37.7 C H Pulse Rate 97 96 Respiratory Rate 18 20 Blood Pressure 135/84 135/84 Pulse Oximetry 97 97 Oxygen Delivery Room Air Room Air 11/08/22 14:00 11/08/22 16:00 11/08/22 17:07 Temperature 38.1 C H 38.2 C H 38.2 C H Pulse Rate 100 91 Respiratory Rate 14 14 Blood Pressure 137/84 128/73 Pulse Oximetry 98 93 Oxygen Delivery Room Air Room Air 11/08/22 18:05 11/09/22 00:00 Temperature 37.7 C H 37.7 C H Pulse Rate 97 Respiratory Rate 20 Blood Pressure 112/77 Pulse Oximetry 94 Oxygen Delivery Room Air Exam Narrative: GENERAL: This is a well-nourished, well-developed patient, in no apparent distress. HEAD: normocephalic, atraumatic. EYES: PERRL. Sclera clear/white. Vision is grossly intact. EARS: External ears normal, auditory canals clear and without drainage, TMs normal without perforation. Hearing grossly intact. NOSE: External nose normal with no obvious nasal di
[2022-11-09] MEDS: ENOXAPARIN 40 MG/0.4 ML SYRINGE SUB-Q (08:50)
[2022-11-09] MEDS: TAMSULOSIN HCL 0.4 MG CAPSULE 0.8 MG PO (08:50)
[2022-11-09] MEDS: CYANOCOBALAMIN 500 MCG TABLET PO (08:51)
[2022-11-09] MEDS: ASPIRIN 325 MG ENTERIC TABLET PO (08:51)
[2022-11-09] MEDS: amLODIPine BESYLATE 5 MG TABLET 10 MG PO (08:55)
[2022-11-09] MEDS: FINASTERIDE 5 MG TABLET PO (10:19)
[2022-11-09] MEDS: ACETAMINOPHEN 325 MG TABLET 650 MG PO (11:54)
--- NOTE | 2022-11-09 13:02 | PC.NURSE ---
Pt states headache is a 3 but is better.
--- NOTE | 2022-11-09 14:54 | PC.NURSE ---
Pt ate 50% of his lunch.
--- NOTE | 2022-11-09 15:09 | PC.NURSE ---
Addendum entered by Lara Herrera RN 11/10/22 08:44: This note was accidentally entered on the wrong patient. Original Note: Pt returned from appt. To room per wc. A&Ox4. To bed using walker with standby assist. Has no complaints or concerns. Paperwork from follow up appt from jair collins placed on chart. Call nicole in reach. Reminded to call with needs.
[2022-11-09 16:00] VITALS: BP 121/75; PULSE 89; RESP 16; TEMP 37.4; O2SAT 94
[2022-11-09] MEDS: traZODone HCL 50 MG TABLET PO (20:34)
[2022-11-09] MEDS: PRAVASTATIN SODIUM 20 MG TABLET 40 MG PO (20:34)
[2022-11-09] MEDS: LORazepam INJ (*CRX) 2 MG/ML VIAL 0.5 MG IV PUSH (20:35)
[2022-11-10] VITALS: BP 132/78; PULSE 81; RESP 24; TEMP 37.6; O2SAT 93
[2022-11-10] MEDS: CYCLOBENZAPRINE HCL 5 MG TABLET PO ×2 (00:43→20:20)
[2022-11-10 05:29] LABS: Estimated CRCL calculation 66 ml/min; Estimated Glomerular Filt Rate > 60
[2022-11-10] MEDS: SODIUM CHLORIDE 0.9% IV 1,000 ML 100 ML IV CONT (06:10)
[2022-11-10] MEDS: LEVOTHYROXINE SODIUM 100 MCG TABLET PO (06:11)
[2022-11-10] MEDS: traMADol HCL (*CRX) 25 MG TABLET PO (06:18)
[2022-11-10 08:00] VITALS: BP 143/88; PULSE 81; RESP 16; TEMP 36.9; O2SAT 94
[2022-11-10] MEDS: CYANOCOBALAMIN 500 MCG TABLET PO (08:06)
[2022-11-10] MEDS: amLODIPine BESYLATE 5 MG TABLET 10 MG PO (08:06)
[2022-11-10] MEDS: ASPIRIN 325 MG ENTERIC TABLET PO (08:06)
[2022-11-10] MEDS: FINASTERIDE 5 MG TABLET PO (08:06)
[2022-11-10 08:07] LABS: Hematocrit 38.3 % (37.0-46.0); Hemoglobin 13.3 g/dL (12.4-15.3); Mean Corpuscular HGB Conc 34.7 g/dL (32.0-36.0); Mean Corpuscular Hemoglobin 32.2 pg (27.0-31.0); Mean Corpuscular Volume 92.7 fL (78.0-102.0); Mean Platelet Volume 10.7 fl (8.7-11.0); Platelet Count Result 209 K/mm3 (150-420); Red Blood Count 4.13 M/mm3 (4.70-6.10); Red Cell Distribution Width 11.7 % (11.6-14.4)
[2022-11-10] MEDS: TAMSULOSIN HCL 0.4 MG CAPSULE 0.8 MG PO (08:07)
[2022-11-10] MEDS: ACETAMINOPHEN 325 MG TABLET 650 MG PO ×2 (08:07→18:44)
[2022-11-10] MEDS: ENOXAPARIN 40 MG/0.4 ML SYRINGE SUB-Q (08:08)
[2022-11-10 08:10] LABS: White Blood Count 22.2 K/mm3 (4.8-10.8)
[2022-11-10 08:11] LABS: Anion Gap 7 mmol/L (8-16); Blood Urea Nitrogen 12 mg/dL (7-18); Calcium 8.1 mg/dL (8.5-10.1); Carbon Dioxide 28 mmol/L (21-32); Chloride 106 mmol/L (98-108); Estimated CRCL calculation 66 ml/min; Estimated Glomerular Filt Rate > 60; Glucose 98 mg/dL (70-99); Osmolality Calculated 291 mOsm/kg (285-295); Potassium 3.2 mmol/L (3.5-5.1); Sodium 141 mmol/L (136-145)
--- NOTE | 2022-11-10 09:02 | PM.IMPN ---
Progress Note: A&P Assessment and Plan (1) Acute UTI: Code(s): N39.0 - Urinary tract infection, site not specified Status: Acute Assessment and Plan: UA with leukocytes nitrate and bacteria patient started on Rocephin Rocephin increased to 2 g instead of 1 vancomycin added due to a worsening WBC will continue to monitor WBCs urine and blood culture pending (2) Anxiety disorder: Code(s): F41.9 - Anxiety disorder, unspecified Status: Acute Assessment and Plan: Ativan (3) Hyperlipidemia: Code(s): E78.5 - Hyperlipidemia, unspecified Status: Acute Assessment and Plan: continue home medication (4) BPH (benign prostatic hyperplasia): Code(s): N40.0 - Benign prostatic hyperplasia without lower urinary tract symptoms Status: Acute Assessment and Plan: continue Flomax and added Proscar patient may possibly need to discharge home with a Castaneda in follow-up with his urologist (5) Hypertension: Code(s): I10 - Essential (primary) hypertension Status: Acute Assessment and Plan: stable continue home medication (6) Hypothyroidism: Code(s): E03.9 - Hypothyroidism, unspecified Status: Acute Assessment and Plan: continue home medication Subjective Date/time seen: 11/10/22 09:02 Interval history: Patient is complaining of pain with urination and states that the pain comes and goes before he starts urinating. Patient has remained a febrile although WBC remains high at 22. Patient is eating and drinking without difficulties. awaiting for cultures to come back patient potassium is a little low we will replenish at this time. Exam Narrative: GENERAL: This is a well-nourished, well-developed patient, in no apparent distress. HEAD: normocephalic, atraumatic. EYES: PERRL. Sclera clear/white. Vision is grossly intact. EARS: External ears normal, auditory canals clear and without drainage NOSE: External nose normal with no obvious nasal discharge, nares without redness, no rhinorrhea. THROAT: Mucous membranes moist, posterior pharynx clear. NECK: Neck supple, non-tender without lymphadenopathy CARDIOVASCULAR: Regular rate and rhythm RESPIRATORY: Clear to auscultation. Breath sounds equal bilaterally. No wheezes, rales, or rhonchi. GASTROINTESTINAL: Abdomen soft, non-tender, nondistended. Bowel sounds are active. SKIN: warm, intact with no suspicious lesions or rash, good texture and turgor. NEURO: awake, alert, and oriented to person, place and time. There were no obvious focal neurologic abnormalities. EXTREMITIES: Normal range of motion. No edema. No calf tenderness. Castaneda: urine clear yellow with sediment complains of pain Objective Data Vital Signs Vital Signs: Vital Signs - 24 hr 11/09/22 16:00 11/10/22 00:00 11/10/22 08:00 Temperature 99.3 F 99.7 F H 98.4 F Pulse Rate 89 81 81 Respiratory Rate 16 24 H 16 Blood Pressure 121/75 132/78 143/88 H Pulse Oximetry 94 93 94 Oxygen Delivery Room Air Room Air Room Air Intake/Output Intake/Output: Intake & Output 11/07/22 11/08/22 11/09/22 11/10/22 23:59 23:59 23:59 23:59 Intake Total 3113 4030 1690 Output Total 1025 2625 3000 Balance 2088 1405 -1310 Meds/Results Medications: Active Medications Generic Name Dose Route Start Last Admin Trade Name Freq PRN Reason Stop Dose Admin Acetaminophen 650 mg 11/08/22 11:10 11/10/22 08:07 Acetaminophen 325 Mg Tablet PO 650 mg Q4H PRN Administration Mild Pain (1-3) or Fever Hydrocodone Bitart/Acetaminophen 1 tab 11/08/22 11:10 11/09/22 20:34 Hydrocodone/Acetaminophen (*Crx) 5-325 Mg Tablet PO 1 tab Q4H PRN Administration Pain Rated 7-10 Amlodipine Besylate 10 mg 11/09/22 09:00 11/10/22 08:06 Amlodipine Besylate 5 Mg Tablet PO 10 mg DAILY CHAD Administration Aspirin 325 mg 11/09/22 09:00 11/10/22 08:06 Aspirin 325 Mg Enteric Tablet PO 325
--- NOTE | 2022-11-10 09:05 | PC.NURSE ---
Patient changed to inpatient
[2022-11-10] MEDS: cefTRIAXone 2 GM/NS 100 ML 2 GM/100 ML BAG IVPB (09:21)
[2022-11-10] MEDS: PHENAZOPYRIDINE HCL 100 MG TABLET 200 MG PO ×3 (09:24→17:01)
[2022-11-10] MEDS: POTASSIUM CHLORIDE 20 MEQ TABLET PO ×2 (10:06→17:01)
[2022-11-10] MEDS: polyethylene glycoL 3350 17 GM POWD.PACK (10:08)
[2022-11-10] MEDS: polyethylene glycoL 3350 238 GM BOTTLE 17 GM PO (10:29)
[2022-11-10 16:00] VITALS: BP 131/77; PULSE 71; RESP 16; TEMP 37.1; O2SAT 94
[2022-11-10] MEDS: SODIUM CHLORIDE 0.9% IV 1,000 ML 75 ML IV CONT (18:24)
[2022-11-10 20:00] VITALS: PULSE 71; RESP 16; O2SAT 94
[2022-11-10] MEDS: traZODone HCL 50 MG TABLET PO (20:18)
[2022-11-10] MEDS: PRAVASTATIN SODIUM 20 MG TABLET 40 MG PO (20:18)
[2022-11-10] MEDS: LORazepam INJ (*CRX) 2 MG/ML VIAL 0.5 MG IV PUSH (21:36)
--- NOTE | 2022-11-10 22:53 | PC.NURSE ---
Patient has been anxious wanting medications to help him sleep. this nurse explained to the patient that he has had mulitple medications. patient has been trying to get out of bed, when alarm goes off he states that he was just moving around. attempted to get patient comfortable multiple times by repositioning. he is now confused at this time, stated that his bed is in different places and everyone is in a different place. he also was confused on if he wanted to use the toilet or not. this nurse walked patient to the bathroom and back he was slow and slightly unsteady on his feet. pt is in bed at this time. water pitcher filled again.
[2022-11-11] VITALS: BP 137/80; PULSE 76; RESP 16; TEMP 37.1; O2SAT 92
--- NOTE | 2022-11-11 00:45 | PC.NURSE ---
patient continues to be confused. he stated that he needs to cut the tube(catheter). he has been oriented to situation. he is argumentative with staff. he attempts to get out of bed per self. states that he needs something to help him sleep. this nurse explained that he has had what he can get and is now confused. attempted to explain for patient to try and relax in the bed. patient is in bed at this time after getting up to the bathroom. no bowel movement at this time. patient stated that he had a bowel movement earlier in the shift, the toilet was flushed prior to this nurse being called. continuing to monitor alter mental status.
--- NOTE | 2022-11-11 01:25 | PC.NURSE ---
patient crawled out of bed and pulled Iv out of his right wrist. pressure dressing applied. pt stated he needed to go to the bathroom. patient was walked to the bathroom and he did not have a BM, reynoso catheter was drained at this time as well due to it having 750ml in it. prior amount drained was 1000 this shift. patient is drinking alot. when explaining that the IV needed to be placed again, patient got upset and called his . this nurse was in the room during the conversation, patients explained to patient that he needed the IV and patient agreed to have it placed again, this nurse palced a 20g IV catheter into the RFA without complications, pt tolerated procedure well, reinforced with dressing and tape. pt is in his bad at this time. pt continues to have periods of confusion.
[2022-11-11 05:11] LABS: Hematocrit 37.8 % (37.0-46.0); Hemoglobin 13.5 g/dL (12.4-15.3); Mean Corpuscular HGB Conc 35.7 g/dL (32.0-36.0); Mean Corpuscular Hemoglobin 32.5 pg (27.0-31.0); Mean Corpuscular Volume 91.1 fL (78.0-102.0); Mean Platelet Volume 9.8 fl (8.7-11.0); Platelet Count Result 224 K/mm3 (150-420); Red Blood Count 4.15 M/mm3 (4.70-6.10); Red Cell Distribution Width 11.6 % (11.6-14.4); White Blood Count 15.9 K/mm3 (4.8-10.8)
[2022-11-11 05:22] LABS: Anion Gap 6 mmol/L (8-16); Blood Urea Nitrogen 10 mg/dL (7-18); Carbon Dioxide 29 mmol/L (21-32); Chloride 105 mmol/L (98-108); Estimated CRCL calculation 65 ml/min; Estimated Glomerular Filt Rate > 60; Glucose 106 mg/dL (70-99); Osmolality Calculated 289 mOsm/kg (285-295); Potassium 3.2 mmol/L (3.5-5.1); Sodium 140 mmol/L (136-145)
[2022-11-11] MEDS: LEVOTHYROXINE SODIUM 100 MCG TABLET PO (06:44)
[2022-11-11] MEDS: HYDROcodone/acetaminophen (*CRX) 5-325 MG TABLET 1 TAB PO (07:41)
[2022-11-11 08:00] VITALS: BP 140/78; PULSE 78; RESP 14; TEMP 36.8; O2SAT 98
--- NOTE | 2022-11-11 08:08 | PM.DS ---
DS: Admitting Diagnosis Discharge Date 11/11/2022 Admitting Diagnosis uti, URINARY RETENTION , DS: Discharge Diagnosis Discharge Diagnosis (1) Acute UTI: Code(s): N39.0 - Urinary tract infection, site not specified Status: Acute Assessment and Plan: UA with leukocytes nitrate and bacteria patient started on Rocephin Rocephin increased to 2 g instead of 1 vancomycin added due to a worsening WBC will continue to monitor WBCs urine and blood culture pending (2) Anxiety disorder: Code(s): F41.9 - Anxiety disorder, unspecified Status: Acute Assessment and Plan: Ativan (3) Hyperlipidemia: Code(s): E78.5 - Hyperlipidemia, unspecified Status: Acute Assessment and Plan: continue home medication (4) BPH (benign prostatic hyperplasia): Code(s): N40.0 - Benign prostatic hyperplasia without lower urinary tract symptoms Status: Acute Assessment and Plan: continue Flomax and added Proscar patient may possibly need to discharge home with a Castaneda in follow-up with his urologist (5) Hypertension: Code(s): I10 - Essential (primary) hypertension Status: Acute Assessment and Plan: stable continue home medication (6) Hypothyroidism: Code(s): E03.9 - Hypothyroidism, unspecified Status: Acute Assessment and Plan: continue home medication DS: Summary Hospital Course Reason for hospitalization: Urinary Retention, UTI, Fever Hospital Course: This 82-year-old male presented to the emergency room with fever all was found to have a urinary tract infection was treated with IV fluids, Castaneda catheter was placed due to retention. Patient's bladder scan showed 601 Castaneda was placed he had over a 1000 of urine out that was a blood-tinged with sediment noted cultures were sent off. Patient has a past medical history of hypertension, hypothyroidism, hyperlipidemia, anxiety, BPH. Patient's white blood count was as high as 29k continue to slowly come down patient very anxious to discharge when several times leave against medical advice. Cap patient the blood count was 15,000 he was afebrile for more than 24 hours Castaneda catheter will need to continue to be in place patient has an appointment with urologist as well as a prescribed med care provider explained my concerns about patient's white blood count still being elevated as patient is still denying wanting to stay as he feels he is ready to go. Patient's has several concerns she is very anxious at times but she feels like she can not handle them home. Patient will go home on oral antibiotics also supply review has been ordered for the next 3 days explained to patient the importance of drinking plenty of fluids Tylenol for any fevers patient denies any nausea and/or vomiting. On discharge patient's vitals 140-78 pulse 78, respirations 14, temperature 98.3?, patient was 98% on room air Time Spent with Patient Time attestation: Total time spent providing and/or coordinating discharge services: Exam Narrative: GENERAL: This is a well-nourished, well-developed patient, in no apparent distress. HEAD: normocephalic, atraumatic. EYES: PERRL. Sclera clear/white. Vision is grossly intact. EARS: External ears normal, auditory canals clear and without drainage NOSE: External nose normal with no obvious nasal discharge, nares without redness, no rhinorrhea. THROAT: Mucous membranes moist, posterior pharynx clear. NECK: Neck supple, non-tender without lymphadenopathy CARDIOVASCULAR: Regular rate and rhythm RESPIRATORY: Clear to auscultation. Breath sounds equal bilaterally. No wheezes, rales, or rhonchi. GASTROINTESTINAL: Abdomen soft, non-tender, nondistended. Bowel sounds are active. SKIN: warm, intact with no suspicious lesions or rash, good texture and turgor. NEURO: awake, alert, and oriented to person, place and time. There were no obvious focal neurologic abnormalities. EXTREM
[2022-11-11] MEDS: PHENAZOPYRIDINE HCL 100 MG TABLET 200 MG PO (08:36)
[2022-11-11] MEDS: POTASSIUM CHLORIDE 20 MEQ TABLET PO (08:36)
[2022-11-11] MEDS: CYANOCOBALAMIN 500 MCG TABLET PO (08:37)
[2022-11-11] MEDS: amLODIPine BESYLATE 5 MG TABLET 10 MG PO (08:37)
[2022-11-11] MEDS: TAMSULOSIN HCL 0.4 MG CAPSULE 0.8 MG PO (08:37)
[2022-11-11] MEDS: ASPIRIN 325 MG ENTERIC TABLET PO (08:37)
--- NOTE | 2022-11-11 09:49 | PC.NURSE ---
Pt discharged to family care. Discharge instructions given to both pt and spouse. Medication instruction: Drug, purpose, times and SE. Castaneda cath care and how to change from a leg bag to the large bag for over night. How to empty the bag and when to empty the bag. Follow up appointments. Spouse made FU for Dr. Austin for Tuesday at 1045 and the urologist on November 19. Pt will be seen by [facility] . Discharge information faxed to [facility] by Case Management.
--- NOTE | 2022-11-11 10:04 | PC.NURSE ---
Patients called and he has appointment with Dr Austin tuesday, states that he had breast swelling with finasteride and was told not to take, med added to allergy list
--- NOTE | 2022-11-12 14:44 | PC.NURSE ---
Patient states he received and understood the discharge instructions. Pt has no other comments.
== END 2022-11-11 09:25 | disposition home health service (06) | DRG 690 ==
LOC: CHSED 11:20 → CHS2ND 11:40
PROVIDERS: Nurse Practitioner; Nurse Practitioner Family; Admitting Provider Internal Medicine; Emergency Provider Family Medicine; PCP Internal Medicine; Visit Provider Internal Medicine
DX: N39.0 Urinary tract infection, site not specified (principal); I10 Essential (primary) hypertension; E78.5 Hyperlipidemia, unspecified; E03.9 Hypothyroidism, unspecified; N40.1 Benign prostatic hyperplasia with lower urinary tract symptoms; R33.8 Other retention of urine; F41.9 Anxiety disorder, unspecified; Z87.891 Personal history of nicotine dependence; Z79.82 Long term (current) use of aspirin
CPT/HCPCS: 36415; 80048; 80053; 81001; 82565; 83735; 83880; 84153; 84443; 84484; 85025; 85027; 87040; 87077; 87086; 87088; 87186; 87637; 87651; 93005; 96361; 96365; 96366; 96367; 96372; 96375; 96376; 97161; 97530; 99285; A9270; G0378; J0696; J1650; J2060; J3370; J7030

== ENCOUNTER 2022-11-16 00:21 | Emergency (ER) | payer MEDICARE, SELFPAY ==
[2022-11-16 00:27] VITALS: BP 135/94; PULSE 93; RESP 16; TEMP 36.9; O2SAT 97
--- NOTE | 2022-11-16 01:15 | PC.NURSE ---
Bladder scan showed greater than 600ml upon initial scan.
[2022-11-16 01:30] LABS: Appearance Urine Clear (Clear); Bacteria Urine None Seen /hpf; Bilirubin Urine Negative (Negative); Blood Urine 2+ (Negative); Color Urine Yellow (Yellow); Glucose Urine UA Negative (Negative); Ketones Urine Negative (Negative); Leukocyte Esterase Ur Trace LEU/UL (Negative); Nitrate Urine Negative (Negative); Non Pathogenic Casts 0-2; Protein Urine Negative (Negative); RBC Urine 51-100 /hpf (0-2); Specific Grav Ur 1.012 (1.001-1.035); Squamous Epithelial Cell Urine None seen /hpf (Few); Urobilinogen Urine 0.2 mg/dL (<2.0); WBC Urine 0-5 /hpf
[2022-11-16 01:33] LABS: Add Urine Microscopic? YES
--- NOTE | 2022-11-16 02:32 | ED.GENADULT ---
HPI - General Adult General Chief complaint: Urogenital-Male Stated complaint: urinary retention Time Seen by Provider: 11/16/22 01:11 History of Present Illness HPI narrative: this is an 82-year-old male presenting ED with chief complaint of urinary retention. Patient was seen by Dr. Gio aguilera and had his Castaneda removed. Is able to urinate for about an hour before he started to retain urine. He then developed lower abdominal pain. Patient denies fever chills or dysuria. Related Data Home Medications Medication Instructions Recorded Confirmed amlodipine 5 mg tablet 10 mg PO DAILY 11/17/20 11/08/22 levothyroxine 100 mcg tablet 100 mcg PO DAILY 11/17/20 11/08/22 pravastatin 40 mg tablet 40 mg PO HS 11/17/20 11/08/22 tamsulosin 0.4 mg capsule 0.8 mg PO DAILY 11/17/20 11/08/22 alprazolam 0.25 mg tablet 0.5 mg PO HS PRN Anxiety 11/24/20 11/08/22 cyanocobalamin (vitamin B-12) 500 500 mcg PO DAILY 11/24/20 11/08/22 mcg tablet (Vitamin B-12) aspirin 325 mg tablet 325 mg PO DAILY 11/08/22 11/08/22 Allergies Allergy/AdvReac Type Severity Reaction Status Date / Time finasteride AdvReac Other Verified 11/11/22 10:04 [facility] Past Medical History Medical History Anxiety disorder BPH (benign prostatic hyperplasia) Hyperlipidemia Hypertension Hypothyroidism Surgical History Surgical History H/O parathyroidectomy Social History Social History Smoking packs per day: 1 Smoking cigarettes per day: 20.0 Years smoked: 30 Smoking pack-years: 30.00 Smoking status: Former smoker Tobacco type: cigarettes Second hand tobacco smoke exposure: No Alcohol intake: never Substance use: never Substance use type: does not use Lack of Transportation: No Lack of Food: Never True Current Housing: I Have Housing Concerned About Future Housing: No Difficulty Paying Gas/Electric Bills: No Difficulty Paying for Meds: No Currently Unemployed: No Education: Don't Know Difficulty w/ Childcare or Family Care: No Living arrangements: with family Gender identity (if verbalized by the patient): Male Sexual Orientation (if Verbalized by the Patient): Straight or Heterosexual Spiritual care concerns: No Exam Narrative: Castaneda had been placed by nursing staff the time of my exam APPEARANCE: No apparent distress. Head: atraumatic. EYES: EOMI, NOSE: Atraumatic NECK: Trachea midline RESPIRATORY: No increased rate of breathing clear to auscultation CARDIOVASCULAR: RRR, ABDOMINAL: Non-distended, soft no guarding or rebound MUSCULOSKELETAl: No obvious deformities NEURO: Alert. Moving 4/4 extremities SKIN:: Warm, dry. Normal color PSYCHIATRIC: Normal affect Course Vital Signs Vital signs: Vital Signs Temperature 98.5 F 11/16/22 00:27 Pulse Rate 93 11/16/22 00:27 Respiratory Rate 16 11/16/22 00:27 Blood Pressure 135/94 H 11/16/22 00:27 Pulse Oximetry 97 11/16/22 00:27 Oxygen Delivery Room Air 11/16/22 00:27 Temperature 98.5 F 11/16/22 00:27 Pulse Rate 93 11/16/22 00:27 Respiratory Rate 16 11/16/22 00:27 Blood Pressure 135/94 H 11/16/22 00:27 Pulse Oximetry 97 11/16/22 00:27 Oxygen Delivery Room Air 11/16/22 00:27 Medical Decision Making [facility] Narrative Medical decision making narrative: -Presentation: 82-year-old male present with urinary retention -DDX includes but is not limited to: BPH, UTI -Co-morbidities complicating care: history of urinary retention -Social determinants of health: retired, lives with his -External Chart Review: previous ER notes -Hx from independent Sources: granddaughter bedside -Discussion of Management/Consultants: none -Independent interpretation of studies: urinalysis was not indicative of infection Dx tests consi
[2022-11-16 02:42] VITALS: BP 128/80; PULSE 84; RESP 16; O2SAT 99
== END 2022-11-16 02:43 | disposition home or self-care (01) ==
PROVIDERS: Emergency Provider Emergency Medicine; PCP Internal Medicine
DX: N40.1 Benign prostatic hyperplasia with lower urinary tract symptoms (principal); R33.8 Other retention of urine; E78.5 Hyperlipidemia, unspecified; I10 Essential (primary) hypertension; E89.2 Postprocedural hypoparathyroidism; F41.9 Anxiety disorder, unspecified; Z87.891 Personal history of nicotine dependence; Z79.82 Long term (current) use of aspirin
CPT/HCPCS: 51702; 81001; 99283

== ENCOUNTER 2023-01-12 09:15 | Outpatient (CLI) | payer MEDICARE, SELFPAY ==
[2023-01-12 09:32] LABS: Basophils Absolute Auto 0.07 K/mm3 (0.00-0.10); Basophils Percent Auto 0.9 % (0.0-1.0); Eosinophils Absolute Auto 0.18 K/mm3 (0.02-0.50); Eosinophils Percent Auto 2.3 % (1.0-6.0); Hematocrit 43.6 % (37.0-46.0); Hemoglobin 15.3 g/dL (12.4-15.3); Immature Granulocyte Absolute 0.02 K/mm3 (0.00-0.00); Immature Granulocyte Percent A 0.3 % (0.0-0.0); Lymphocytes Absolute Auto 2.12 K/mm3 (1.10-4.50); Lymphocytes Percent Auto 26.6 % (18.0-42.0); Mean Corpuscular HGB Conc 35.1 g/dL (32.0-36.0); Mean Corpuscular Hemoglobin 31.9 pg (27.0-31.0); Mean Corpuscular Volume 90.8 fL (78.0-102.0); Mean Platelet Volume 9.6 fl (8.7-11.0); Monocytes Absolute Auto 0.58 K/mm3 (0.10-0.90); Monocytes Percent Auto 7.3 % (2.0-11.0); Neutrophils Percent Auto 62.6 % (50.0-70.0); Platelet Count Result 235 K/mm3 (150-420); Red Cell Distribution Width 11.8 % (11.6-14.4)
[2023-01-12 10:42] LABS: Alanine Aminotransferase 30 U/L (16-63); Alkaline Phosphatase 44 U/L (46-116); Anion Gap 10 mmol/L (8-16); Aspartate Amino Transferase 18 U/L (15-37); Bilirubin,Total 0.8 mg/dL (0.00-1.00); Blood Urea Nitrogen 20 mg/dL (7-18); Calcium 8.9 mg/dL (8.5-10.1); Carbon Dioxide 26 mmol/L (21-32); Chloride 103 mmol/L (98-108); Cholesterol 148 mg/dL (0-200); Creatine Kinase 175 U/L (39-308); Estimated Glomerular Filt Rate > 60; Glucose 97 mg/dL (70-99); HDL Direct 43 mg/dL (40-60); LDL Cholesterol Calculated 83 mg/dL (<130); Osmolality Calculated 290 mOsm/kg (285-295); Potassium 3.7 mmol/L (3.5-5.1); Prostate Specific Antigen 5.7 ng/mL (< OR = 4.0); Sodium 139 mmol/L (136-145); Thyroid Stimulating Hormone 1.52 uIU/mL (0.36-3.74); Total Protein 7.4 g/dL (6.4-8.2); Triglycerides 112 mg/dL (0-150)
[2023-01-12 13:01] LABS: Appearance Urine Clear (Clear); Bilirubin Urine Negative (Negative); Blood Urine Negative (Negative); Color Urine Yellow (Yellow); Glucose Urine UA Negative (Negative); Ketones Urine Negative (Negative); Leukocyte Esterase Ur Negative (Negative); Nitrate Urine Negative (Negative); Protein Urine Negative (Negative); Urobilinogen Urine 0.2 mg/dL (0.2-1.0)
[2023-01-12 13:05] LABS: Add Urine Microscopic? NO
[2023-01-13 14:42] LABS: Free T3 2.47 pg/mL (2.18-3.98)
== END 2023-01-12 09:16 | disposition home or self-care (01) ==
LOC: CHSLAB 09:17
PROVIDERS: PCP Internal Medicine; Visit Provider Internal Medicine
DX: E78.2 Mixed hyperlipidemia (principal); I10 Essential (primary) hypertension; E03.4 Atrophy of thyroid (acquired); R97.20 Elevated prostate specific antigen [PSA]
CPT/HCPCS: 36415; 80053; 80061; 81003; 82550; 84153; 84439; 84443; 84481; 85025

== ENCOUNTER 2024-10-26 14:40 | Outpatient (CLI) | payer MEDICARE, SELFPAY ==
[2024-10-26 15:01] LABS: Hematocrit 42.6 % (37.0-46.0); Mean Corpuscular HGB Conc 35.2 g/dL (32-36); Mean Corpuscular Hemoglobin 32.1 pg (27.0-31.0); Mean Corpuscular Volume 91.2 fL (78.0-102.0); Mean Platelet Volume 9.7 fl (8.7-11.0); Platelet Count Result 294 K/mm3 (150-420); Red Blood Count 4.67 M/mm3 (4.70-6.10); Red Cell Distribution Width 11.6 % (11.6-14.4); White Blood Count 12.7 K/mm3 (4.8-10.8)
[2024-10-26 15:41] LABS: Anion Gap 11 mmol/L (4-12); Blood Urea Nitrogen 17 mg/dL (7-18); Calcium 8.9 mg/dL (8.5-10.1); Carbon Dioxide 25 mmol/L (21-32); Chloride 95 mmol/L (98-108); Estimated Glomerular Filt Rate 58; Glucose 115 mg/dL (70-99); Osmolality Calculated 274 mOsm/kg (285-295); Prostate Specific Antigen 3.5 ng/mL (< OR = 4.0); Sodium 131 mmol/L (136-145)
[2024-10-26 15:43] LABS: Add Urine Microscopic? YES; Appearance Urine Clear (Clear); Bilirubin Urine Negative (Negative); Blood Urine 1+ (Negative); Color Urine Yellow (Yellow); Glucose Urine UA Negative (Negative); Ketones Urine Negative (Negative); Leukocyte Esterase Ur 3+ (Negative); Nitrate Urine Negative (Negative); Protein Urine Trace (Negative); Specific Grav Ur <= 1.005 (1.010-1.020); Urobilinogen Urine 0.2 mg/dL (0.2-1.0)
[2024-10-26 15:50] LABS: Bacteria Urine 1+ /hpf; Squamous Epithelial Cell Urine Rare /hpf (Few); WBC Urine >75 /hpf (0-3)
== END 2024-10-26 14:41 | disposition home or self-care (01) ==
LOC: CHSLAB 14:43
PROVIDERS: PCP Internal Medicine; Visit Provider Internal Medicine
DX: R97.20 Elevated prostate specific antigen [PSA] (principal); R30.0 Dysuria
CPT/HCPCS: 36415; 80048; 81001; 84153; 85027; 87086; 87181

== ENCOUNTER 2024-11-02 12:22 | Outpatient (CLI) | payer MEDICARE, SELFPAY ==
[2024-11-02 12:36] LABS: Add Urine Microscopic? YES; Appearance Urine Clear (Clear); Bilirubin Urine Negative (Negative); Blood Urine Negative (Negative); Color Urine Light Yellow (Yellow); Glucose Urine UA Negative (Negative); Hematocrit 42.1 % (37.0-46.0); Hemoglobin 14.6 g/dL (12.4-15.3); Ketones Urine Negative (Negative); Leukocyte Esterase Ur 1+ (Negative); Mean Corpuscular HGB Conc 34.7 g/dL (32-36); Mean Corpuscular Hemoglobin 31.9 pg (27.0-31.0); Mean Corpuscular Volume 91.9 fL (78.0-102.0); Mean Platelet Volume 9.3 fl (8.7-11.0); Nitrate Urine Negative (Negative); Platelet Count Result 290 K/mm3 (150-420); Protein Urine Negative (Negative); Red Blood Count 4.58 M/mm3 (4.70-6.10); Red Cell Distribution Width 11.7 % (11.6-14.4); Specific Grav Ur <= 1.005 (1.010-1.020); Urobilinogen Urine 0.2 mg/dL (0.2-1.0); White Blood Count 11.4 K/mm3 (4.8-10.8); pH Urine 6.5 (5.0-8.0)
[2024-11-02 12:45] LABS: Bacteria Urine Rare /hpf; RBC Urine None seen /hpf (0-2); WBC Urine None seen /hpf (0-3)
[2024-11-02 12:49] LABS: Anion Gap 9 mmol/L (4-12); Blood Urea Nitrogen 17 mg/dL (7-18); Calcium 8.8 mg/dL (8.5-10.1); Carbon Dioxide 26 mmol/L (21-32); Chloride 103 mmol/L (98-108); Estimated Glomerular Filt Rate 56; Glucose 111 mg/dL (70-99); Osmolality Calculated 288 mOsm/kg (285-295); Sodium 138 mmol/L (136-145)
== END 2024-11-02 12:23 | disposition home or self-care (01) ==
LOC: CHSLAB 12:25
PROVIDERS: PCP Internal Medicine; Visit Provider Internal Medicine
DX: N39.0 Urinary tract infection, site not specified (principal); E86.0 Dehydration
CPT/HCPCS: 36415; 80048; 81001; 85027; 87086

== ENCOUNTER 2024-11-09 12:03 | Outpatient (CLI) | payer MEDICARE, SELFPAY ==
[2024-11-09 12:48] LABS: Add Urine Microscopic? NO; Appearance Urine Clear (Clear); Bilirubin Urine Negative (Negative); Blood Urine Negative (Negative); Color Urine Yellow (Yellow); Glucose Urine UA Negative (Negative); Hematocrit 42.3 % (37.0-46.0); Hemoglobin 14.7 g/dL (12.4-15.3); Ketones Urine Negative (Negative); Leukocyte Esterase Ur Negative (Negative); Mean Corpuscular HGB Conc 34.8 g/dL (32-36); Mean Corpuscular Volume 92.2 fL (78.0-102.0); Mean Platelet Volume 9.8 fl (8.7-11.0); Nitrate Urine Negative (Negative); Platelet Count Result 313 K/mm3 (150-420); Protein Urine Negative (Negative); Red Blood Count 4.59 M/mm3 (4.70-6.10); Red Cell Distribution Width 11.8 % (11.6-14.4); Specific Grav Ur 1.015 (1.010-1.020); Urobilinogen Urine 0.2 mg/dL (0.2-1.0); White Blood Count 11.9 K/mm3 (4.8-10.8); pH Urine 5.5 (5.0-8.0)
[2024-11-09 14:40] LABS: Anion Gap 11 mmol/L (4-12); Blood Urea Nitrogen 19 mg/dL (7-18); Carbon Dioxide 26 mmol/L (21-32); Chloride 104 mmol/L (98-108); Estimated Glomerular Filt Rate 57; Glucose 122 mg/dL (70-99); Osmolality Calculated 295 mOsm/kg (285-295); Potassium 4.1 mmol/L (3.5-5.1); Sodium 141 mmol/L (136-145)
== END 2024-11-09 12:04 | disposition home or self-care (01) ==
LOC: CHSLAB 12:04
PROVIDERS: PCP Internal Medicine; Visit Provider Internal Medicine
DX: R30.0 Dysuria (principal)
CPT/HCPCS: 36415; 80048; 81003; 85027; 87086

== ENCOUNTER 2024-12-11 12:20 | Outpatient (CLI) | payer MEDICARE, SELFPAY ==
[2024-12-11 12:37] LABS: Basophils Absolute Auto 0.06 K/mm3 (0.00-0.10); Basophils Percent Auto 0.8 % (0.0-1.0); Eosinophils Absolute Auto 0.25 K/mm3 (0.02-0.50); Eosinophils Percent Auto 3.2 % (1.0-6.0); Hematocrit 42.9 % (37.0-46.0); Hemoglobin 14.9 g/dL (12.4-15.3); Immature Granulocyte Absolute 0.02 K/mm3 (0.00-0.00); Immature Granulocyte Percent A 0.3 % (0.0-0.0); Lymphocytes Absolute Auto 2.06 K/mm3 (1.10-4.50); Mean Corpuscular HGB Conc 34.7 g/dL (32-36); Mean Corpuscular Volume 92.1 fL (78.0-102.0); Mean Platelet Volume 9.7 fl (8.7-11.0); Monocytes Absolute Auto 0.47 K/mm3 (0.10-0.90); Monocytes Percent Auto 5.9 % (2.0-11.0); Neutrophils Absolute Auto 5.07 K/mm3 (1.70-7.20); Neutrophils Percent Auto 63.8 % (50.0-70.0); Platelet Count Result 266 K/mm3 (150-420); Red Blood Count 4.66 M/mm3 (4.70-6.10); Red Cell Distribution Width 12.3 % (11.6-14.4); White Blood Count 7.9 K/mm3 (4.8-10.8)
== END 2024-12-11 12:21 | disposition home or self-care (01) ==
PROVIDERS: PCP Internal Medicine; Visit Provider Internal Medicine
DX: D72.829 Elevated white blood cell count, unspecified (principal)
CPT/HCPCS: 36415; 85025

== ENCOUNTER 2025-01-21 09:00 | Outpatient (CLI) | payer MEDICARE, SELFPAY ==
[2025-01-21 09:39] LABS: Add Urine Microscopic? NO; Appearance Urine Clear (Clear); Glucose Urine UA Negative (Negative); Hematocrit 42.5 % (37.0-46.0); Hemoglobin 15.1 g/dL (12.4-15.3); Immature Granulocyte Percent A 0.3 % (0.0-0.0); Leukocyte Esterase Ur Negative (Negative); Lymphocytes Absolute Auto 2.70 K/mm3 (1.10-4.50); Mean Corpuscular HGB Conc 35.5 g/dL (32-36); Mean Corpuscular Hemoglobin 31.9 pg (27.0-31.0); Mean Corpuscular Volume 89.9 fL (78.0-102.0); Nitrate Urine Negative (Negative); Nucleated Red Blood Cells Absolute Auto 0.00 K/mm3 (0.00-0.00); Nucleated Red Blood Cells Perc 0.0 % (0-0.0); Platelet Count Result 300 K/mm3 (150-420); Red Blood Count 4.73 M/mm3 (4.70-6.10); Specific Grav Ur <= 1.005 (1.010-1.020); White Blood Count 9.5 K/mm3 (4.8-10.8)
[2025-01-21 09:58] LABS: MALB Creatinine Ratio 11.0 mg/g (0-30)
[2025-01-21 10:03] LABS: Alanine Aminotransferase 27 U/L (6-50); Albumin Level 4.2 g/dL (3.5-5.1); Alkaline Phosphatase 45 U/L (38-126); Anion Gap 7 mmol/L (4-12); Aspartate Amino Transferase 28 U/L (17-59); Bilirubin,Total 0.8 mg/dL (0.2-1.3); Blood Urea Nitrogen 14 mg/dL (9-20); Calcium 8.8 mg/dL (8.4-10.2); Carbon Dioxide 23 mmol/L (22-30); Chloride 106 mmol/L (98-107); Cholesterol 132 mg/dL (0-200); Estimated Glomerular Filt Rate > 60; Glucose 88 mg/dL (65-110); Osmolality Calculated 281 mOsm/kg (285-295); Sodium 136 mmol/L (137-145); Total Protein 7.0 g/dL (6.3-8.2); Triglycerides 159 mg/dL (<150)
[2025-01-21 10:05] LABS: Creatine Kinase 59 U/L (55-170); HDL Direct 33 mg/dL; Potassium 4.1 mmol/L (3.4-5.0)
[2025-01-21 10:20] LABS: Free T4 Free Thyroxine 1.27 ng/dL (0.78-2.19)
[2025-01-21 10:21] LABS: Free T3 3.82 pg/mL (2.18-3.98)
[2025-01-21 10:34] LABS: Prostate Specific Antigen 1.6 ng/mL (< OR = 4.0); Thyroid Stimulating Hormone 0.797 uIU/mL (0.465-4.680)
== END 2025-01-21 09:01 | disposition home or self-care (01) ==
LOC: CHSLAB 09:02
PROVIDERS: PCP Internal Medicine; Visit Provider Internal Medicine
DX: E03.4 Atrophy of thyroid (acquired) (principal); I10 Essential (primary) hypertension; R97.0 Elevated carcinoembryonic antigen [CEA]; R80.9 Proteinuria, unspecified; E78.2 Mixed hyperlipidemia; N40.0 Benign prostatic hyperplasia without lower urinary tract symptoms
CPT/HCPCS: 36415; 80053; 80061; 81003; 82043; 82550; 84153; 84439; 84443; 84481; 85025